=== PATIENT | female | born 1995 ===

== ENCOUNTER 2021-09-30 07:45 | Emergency (ER) | payer MEDICAID ==
[~2021-09-30] VITALS: Ht 175.3 cm; Wt 68.0 kg
[2021-09-30 09:29] VITALS: BP 152/80
== END 2021-09-30 10:13 | disposition home or self-care (01) ==
LOC: ER 07:45
DX: J06.9 Acute upper respiratory infection, unspecified (principal); J45.909 Unspecified asthma, uncomplicated; Z20.822 Contact with and (suspected) exposure to COVID-19
CPT/HCPCS: 36415; 71046; 81025; 87426